=== PATIENT | male | born 1975 | race African-American/Black ===

== ENCOUNTER 2020-12-22 07:38 | Inpatient (IN) | payer OTHER ==
[~2020-12-22] VITALS: Ht 170.2 cm; Wt 119.8 kg
[~2020-12-22 07:38] MED LIST: BACTRIM DS TAB1 EACH PO; IBUPROFEN800 MG PO; KEFLEX500 MG PO; NORCO 5-325 TA1 EACH PO
[2020-12-22 08:49] LABS: INFLUENZA A NAA NEGATIVE (NEGATIVE)
[2020-12-22 08:53] LABS: CORONAVIRUS 2019 SARS-COV-2 POSITIVE (NEGATIVE)
[2020-12-22 08:59] LABS: BASOPHIL 0.3 % (0-2); EOSINOPHIL 0 % (0-5); HCT 41.8 % (42.0-52.0); HGB 14.6 g/dl (13.2-18.0); LYMPHOCYTE 12.1 % (15-48); MCH 32.4 pg (25.0-31.0); MCHC 34.9 g/dL (32.0-36.0); MCV 92.7 fL (78.0-100.0); MONOCYTE 6.1 % (0-12); MPV 10.9 fL (6.0-9.5); NEUTROPHIL 78.9 % (41-80); NRBC 1.6; PLT 257 K/uL (150-400); RBC 4.51 M/uL (4.70-6.00); RDW 16.4 % (11.5-14.0); WBC 9.2 K/uL (4.0-10.5)
[2020-12-22 09:26] LABS: BILIRUBIN - TOTAL 0.4 mg/dL (0.2-1.0); CREATININE 3.05 mg/dL (0.67-1.17); GLOBULIN (CALCULATION) 5.4 g/dL; TOTAL PROTEIN 8.4 g/dL (6.4-8.2)
[2020-12-22 09:27] LABS: LACTIC ACID 1.7 mmol/L (0.4-1.9)
[2020-12-22] MEDS ORDERED: HCTZ12.5 MG PO (11:53)
[2020-12-22] MEDS ORDERED: NORVASC5 MG PO (11:53)
[2020-12-22] MEDS ORDERED: AZITHROMYCIN250 MG PO (11:54)
[2020-12-22] MEDS ORDERED: MUCUS D ER 6001 EACH PO (11:54)
[2020-12-23 03:24] LABS: BASOPHIL 0.3 % (0-2); EOSINOPHIL 0 % (0-5); HCT 38.6 % (42.0-52.0); HGB 12.5 g/dl (13.2-18.0); LYMPHOCYTE 14.5 % (15-48); MCHC 32.4 g/dL (32.0-36.0); MCV 92.6 fL (78.0-100.0); MPV 10.8 fL (6.0-9.5); NRBC 2.1; PLT 256 K/uL (150-400); RBC 4.17 M/uL (4.70-6.00); RDW 14.8 % (11.5-14.0); WBC 6.1 K/uL (4.0-10.5)
[2020-12-23 03:27] LABS: NEUTROPHIL 77.7 % (41-80)
[2020-12-23 03:43] LABS: ALBUMIN 2.7 g/dL (3.4-5.0); BILIRUBIN - TOTAL 0.5 mg/dL (0.2-1.0); CREATININE 2.11 mg/dL (0.67-1.17); GLOBULIN (CALCULATION) 4.3 g/dL; POTASSIUM 4.2 mmol/L (3.5-5.1)
[2020-12-24 03:16] LABS: BASOPHIL 0.3 % (0-2); EOSINOPHIL 0 % (0-5); HCT 38.1 % (42.0-52.0); LYMPHOCYTE 12.1 % (15-48); MCH 29.2 pg (25.0-31.0); MCHC 31.5 g/dL (32.0-36.0); MCV 92.7 fL (78.0-100.0); MONOCYTE 6.4 % (0-12); MPV 10.5 fL (6.0-9.5); NEUTROPHIL 73.7 % (41-80); NRBC 1.1; PLT 318 K/uL (150-400); RBC 4.11 M/uL (4.70-6.00); RDW 14.6 % (11.5-14.0)
[2020-12-24 03:17] LABS: WBC 11.6 K/uL (4.0-10.5)
[2020-12-24 04:04] LABS: C-REACTIVE PROTEIN 4.9 mg/dL (<=0.90); CREATININE 1.41 mg/dL (0.67-1.17); POTASSIUM 3.8 mmol/L (3.5-5.1)
--- NOTE | 2020-12-24 12:43 | NUR ---
12/24/20 Will monitor for home 02 needs.
[2020-12-24 19:49] LABS: HCT 40.4 % (42.0-52.0); HGB 12.3 g/dl (13.2-18.0); MCH 28.5 pg (25.0-31.0); MCHC 30.4 g/dL (32.0-36.0); MCV 93.5 fL (78.0-100.0); MPV 10.4 fL (6.0-9.5); RBC 4.32 M/uL (4.70-6.00); RDW 14.6 % (11.5-14.0); WBC 16.6 K/uL (4.0-10.5)
--- NOTE | 2020-12-24 20:02 | NUR ---
1825 CALLED INTO PT ROOM FOR DECREASING SAT, HR 180 IN VTACH, PT PULLING OFF O2 STATING "HE CAN'T BREATH" . DR. KIM AND ERIBERTO RN AT BEDSIDE. 1831 15OMG IV AMIO PUSH GIVEN, HR 170'S CODE CALLED PER DR. KIM'S INSTRUCTION, PT ANXIOUS, FIGHTING PULLING OFF DYPHORTEC. 1833 METOPROLOL 5MG IV GIVEN 1834 VERSED 2MG IV GIVEN PT HR DOWN TO 98, VAPOTHERM 100% PLACED BY RT AND NRB PLACED ON TOP EKG AND CHEST XRAY DONE AMIO GTT STATED AT 185 33.3ML/HR 1855- PT VERY ANXIOUS HR BACK UP TO 156, O2 SAT 86% PT PULLING OFF O2, SAYING HELP ME 1899 5MG IV VERSED GIVEN PT O2 SAT 80%, O2 REMOVED AND PT BAGGED 1904 ETOMIDATE 20MG IV 200MG SUCC GIVEN 1904 DR. KIM ATTEMPTED INTUBATION WAS UNSUCESSFUL 1908 2ND ATTEMPT TO INTUBATION UNSECESSFUL, DR. MCCOY CALLED TO BEDSIDE SUCTION SET UP 1914 SUCC 150MG IV GIVEN 1914 DR. MCCOY INTUBATED WITH 7.5 ET TUBE CXRAY DONE AND REVIEWED BY PROPOFOL GTT STARTED 1914 20MCG AT 14.2 PT AWAKE AND FIGHTING VENT VERSED 5MG IV GIVEN
[2020-12-24 20:11] LABS: ALBUMIN 2.8 g/dL (3.4-5.0); BILIRUBIN - TOTAL 0.4 mg/dL (0.2-1.0); BUN/CREAT RATIO (CALC) 29.5 RATIO; CREATININE 1.39 mg/dL (0.67-1.17); GLOBULIN (CALCULATION) 3.9 g/dL; MAGNESIUM 2.8 mg/dL (1.8-2.4); TOTAL PROTEIN 6.7 g/dL (6.4-8.2)
--- NOTE | 2020-12-25 01:59 | NUR ---
LATE ENTRY, PATIENT WAS INTUBATED ABOUT [address] KIM/DR. MCCOY WITH DAYSHIFT RT, NIGHTSHIFT RTs STANDBY OUTSIDE ROOM. PATIENT INTUBATED WITH 7.5 ET TUBE AT 26@LIP. PATIENT WAS RESTLESS AND AGITATED AFTER INTUBATION AND GIVEN PARALYTIC. PATIENT BECAME RESTLESS AGAIN ONCE PARALYTIC WORE OFF. DR. KIM PLACED RT RADIAL NILTON. PATIENT HAD JOY SIZED CLOT IN INMAN SUCTION. INMAN CHANGED. PATIENT HAD RED/PINKISH THIN SECRETIONS AFTER INTUBATION THAT HAS TAPERED OFF. Q6 ALBUTEROL MDI. CURRENT VENT SETTINGS AC VT550, RATE 22, 80%, +15 CONTINUE TO MONITOR PATIENT
[2020-12-25 06:03] LABS: BASOPHIL 0.3 % (0-2); EOSINOPHIL 0 % (0-5); HCT 33.3 % (42.0-52.0); HGB 10.6 g/dl (13.2-18.0); LYMPHOCYTE 8.6 % (15-48); MCH 30.3 pg (25.0-31.0); MCHC 31.8 g/dL (32.0-36.0); MCV 95.1 fL (78.0-100.0); MONOCYTE 10.1 % (0-12); MPV 10.2 fL (6.0-9.5); NEUTROPHIL 76.1 % (41-80); NRBC 0.5; PLT 279 K/uL (150-400); WBC 9.3 K/uL (4.0-10.5)
[2020-12-25 06:23] LABS: ALBUMIN 2.3 g/dL (3.4-5.0); BILIRUBIN - TOTAL 0.3 mg/dL (0.2-1.0); BUN/CREAT RATIO (CALC) 31.4 RATIO; CREATININE 1.37 mg/dL (0.67-1.17); GLOBULIN (CALCULATION) 3.7 g/dL; POTASSIUM 4.7 mmol/L (3.5-5.1)
--- NOTE | 2020-12-25 14:51 | NUR ---
12/25/20 Patient is on a ventilator. He is on the waiting list at [facility] for a transfer.
--- NOTE | 2020-12-25 16:09 | NUR ---
1245-NG TUBE PLACE IN LEFT NARE BY RAMANA Lamb RN. W/O DIFFICULTY. GASTRIC CONTENTS OBSERVED. STAT KUB ORDER FOR COFIRMATION OF PLACMENT
[2020-12-26 04:06] LABS: BASOPHIL 0.2 % (0-2); EOSINOPHIL 0 % (0-5); HCT 39.4 % (42.0-52.0); MCH 28.5 pg (25.0-31.0); MCHC 30.5 g/dL (32.0-36.0); MCV 93.6 fL (78.0-100.0); MONOCYTE 5.9 % (0-12); MPV 10.6 fL (6.0-9.5); NRBC 0.2; PLT 317 K/uL (150-400); RBC 4.21 M/uL (4.70-6.00); RDW 14.9 % (11.5-14.0)
[2020-12-26 04:22] LABS: C-REACTIVE PROTEIN 5.9 mg/dL (<=0.90); CREATININE 2.04 mg/dL (0.67-1.17)
[2020-12-26 11:30] LABS: INR 1.61 (0.9-1.2); PROTHROMBIN TIME 18.4 SECONDS (11.8-13.4)
[2020-12-26 11:45] LABS: D-DIMER 13.68 ug/mLFEU (0.00-0.41)
--- NOTE | 2020-12-26 15:02 | NUR ---
NOTIFIED DR POLLOCK THAT THE BIZ WAS AT 4,HE ORDERED TO TURN DOWN VERSED AND FENTANYL.
--- NOTE | 2020-12-26 19:23 | NUR ---
CODE STARTED AT 1800, CHEST COMPRESSIONS STARTED AND FIRST DOSE OF EPI GIVEN AT 181 AND 2ND DOSE AT 181. INCREASED EPI GTT TO 20MCG/60ML/HR PER DR POLLOCK,GOT RHTHYM BACK AT 1818. SEE DR FABIAN NOTE FOR FURTHER DETAILS 1AMP OF BICARB GIVEN DR POLLOCK ALSO CALLED HIS THAT HE WAS CODED AND THAT SHE NEEDED TO COME SEE HIM IF SHE WANTED TO.
--- NOTE | 2020-12-26 20:59 | NUR ---
At 1951 pt bp began to drop into 30s systolic along with heart rate into 60s from the 110s despite maximum settings of vasoactive medications with epi and levo. At 1955 pt lost pulse and went into asystole, code called, CPR started, epi push given and ACLS started. ROSC achieved at 2014. Shortly after, at 2029 pt had similar episode to first code and lost pulse and went into asystole. CPR began at 2031, epi and bicarb given, ACLS resumed, maximum efforts were given to recusitate patient but unsuccessful. Called at [address] Simpson. See MD note for full note and code details.
--- NOTE | 2020-12-26 21:15 | NUR ---
CODE CALLED 1955, PATIENT TAKEN OFF VENT AND BAGGED WITH AMBU AND PEEP VALVE SET AT 20. PATIENT WAS EASY TO VENTILATE THROUGHOUT CODE AND ORAL SUCTION REQUIRED FOR THIN RED BLOOD. ROSC ACHIEVED AND PATIENT PLACED BACK ON VENT. ABG DRAWN FROM RT RADIAL NILTON PER DR. ALYSSIA CLARK WITHIN A FEW MINUTES OF PATIENT BACK ON VENT. ABG RAN AT 2026. RESULTS SHOWN TO DR. CLARK WHO VERBALLY ORDERED INCREASE IN RR TO 38. PATIENT THEN LOST A PULSE AT 2031 AND AGAIN TAKEN OFF VENT TO BE VENTILATED VIA AMBU BAG. CODE ENDED AT 2036. PATIENT WAS SUCTIONED MULTIPLE TIMES AFTER PATIENT . ET TUBE LEFT IN PLACE WITH NO ORDERS TO PULL. VENT REMOVED FROM ROOM
--- NOTE | 2020-12-26 23:32 | NUR ---
RT CALLED TO EXTUBATE ET TUBE. ET TUBE SUCTIONED PRIOR TO TUBE BEING PULLED AND ORALLY SUCTIONED AFTER ET TUBE REMOVED. LARGE AMOUNT OF RED THIN SECRETIONS SUCTIONED.
== END 2020-12-26 20:37 | disposition expired | DRG 208 ==
LOC: FER 07:38 → FICU 09:25
PROVIDERS: Allergy & Immunology Allergy; Internal Medicine; Internal Medicine Cardiovascular Disease; ADMIT Internal Medicine
PROC: XW033E5 Introduction of Remdesivir Anti-infective into Peripheral Vein, Percutaneous Approach, New Technology Group 5 (ICD-10-PCS; 2020-12-22)
PROC: 8E0ZXY6 Isolation (ICD-10-PCS; 2020-12-22)
PROC: 02HV33Z Insertion of Infusion Device into Superior Vena Cava, Percutaneous Approach (ICD-10-PCS; 2020-12-22)
PROC: B543ZZA Ultrasonography of Right Jugular Veins, Guidance (ICD-10-PCS; 2020-12-22)
PROC: 03HY32Z Insertion of Monitoring Device into Upper Artery, Percutaneous Approach (ICD-10-PCS; 2020-12-22)
PROC: 0BH17EZ Insertion of Endotracheal Airway into Trachea, Via Natural or Artificial Opening (ICD-10-PCS; principal; 2020-12-26)
PROC: 5A1945Z Respiratory Ventilation, 24-96 Consecutive Hours (ICD-10-PCS; 2020-12-26)
PROC: 5A12012 Performance of Cardiac Output, Single, Manual (ICD-10-PCS; 2020-12-26)
PROC: 3E04317 Introduction of Other Thrombolytic into Central Vein, Percutaneous Approach (ICD-10-PCS; 2020-12-26)
DX: U07.1 COVID-19 (principal); J96.01 Acute respiratory failure with hypoxia; J12.82 Pneumonia due to coronavirus disease 2019; I26.99 Other pulmonary embolism without acute cor pulmonale; I21.A1 Myocardial infarction type 2; I47.2 Ventricular tachycardia; N17.9 Acute kidney failure, unspecified; J45.901 Unspecified asthma with (acute) exacerbation; E87.0 Hyperosmolality and hypernatremia; I10 Essential (primary) hypertension; Z79.899 Other long term (current) drug therapy; Z87.891 Personal history of nicotine dependence
CPT/HCPCS: 31500; 36415; 36600; 71045; 71275; 74018; 80048; 80053; 82728; 82803; 83605; 83735; 83880; 84145; 84484; 85025; 85379; 85384; 85610; 86140; 87040; 92950; 93005; 94002; 94640; 94664; 94762; C9113; C9399; J0171; J0282; J0330; J0696; J1100; J1644; J1650; J2185; J2250; J2704; J2920; J2930; J3010; J3262; J3475; J7030; J7040; J7050; J7060; J7070; J7120; U0002